=== PATIENT | male | born 1995 | race Caucasian/White ===

== ENCOUNTER 2018-10-07 08:28 | Emergency (ER) | payer MEDICAID ==
[~2018-10-07] VITALS: Ht 175.3 cm; Wt 100.8 kg
[2018-10-07 08:33] VITALS: Ht 175.3 cm; Wt 100.8 kg
[2018-10-07 10:52] VITALS: BP 137/73
== END 2018-10-07 11:29 | disposition home or self-care (01) ==
LOC: ED 08:28
DX: M54.2 Cervicalgia (principal); E66.9 Obesity, unspecified; Z68.32 Body mass index [BMI] 32.0-32.9, adult; V33.5XXA Driver of three-wheeled motor vehicle injured in collision with car, pick-up truck or van in traffic accident, initial encounter; Y93.I9 Activity, other involving external motion; Y92.413 State road as the place of occurrence of the external cause; Y99.8 Other external cause status